=== PATIENT | female | born 1975 | race Caucasian/White ===

== ENCOUNTER 2020-06-18 14:43 | Emergency (ER) | payer SELFPAY ==
[~2020-06-18 14:43] MED LIST: MACROBID100 MG PO; METROCREAM45 GM VG
[2020-06-18 18:06] LABS: BILIRUBIN NEGATIVE (NEGATIVE); BLOOD NEGATIVE Ery/uL (NEGATIVE); CLARITY CLEAR (CLEAR); COLOR YELLOW (YELLOW); GLUCOSE (U) NORMAL (NORMAL); LEUKOCYTES NEGATIVE Leu/uL (NEGATIVE); NITRITE NEGATIVE (NEGATIVE); PROTEIN NEGATIVE (NEGATIVE); UROBILINOGEN 0.2 mg/dL (0.2-1.0)
[2020-06-18 18:19] LABS: BASOPHIL 0.5 % (0-2); EOSINOPHIL 1.6 % (0-5); HCT 40.9 % (37.0-47.0); HGB 13.5 g/dl (12.5-16.0); LYMPHOCYTE 33.6 % (15-48); MCH 29.2 pg (25.0-31.0); MCV 88.3 fL (78.0-100.0); MPV 9.7 fL (6.0-9.5); NRBC 0; PLT 342 K/uL (150-400); RBC 4.63 M/uL (4.20-5.40); WBC 7.4 K/uL (4.0-10.5)
[2020-06-18 18:41] LABS: ALBUMIN 3.9 g/dL (3.4-5.0); BILIRUBIN - TOTAL 0.4 mg/dL (0.2-1.0); BUN/CREAT RATIO (CALC) 16.4 RATIO; CREATININE 0.73 mg/dL (0.51-0.95); GLOBULIN (CALCULATION) 4.3 g/dL; POTASSIUM 3.9 mmol/L (3.5-5.1); TOTAL PROTEIN 8.2 g/dL (6.4-8.2)
== END 2020-06-18 19:03 | disposition home or self-care (01) ==
LOC: FER 14:43
PROVIDERS: Nurse Practitioner Family
DX: R51.9 Headache, unspecified (principal); R53.83 Other fatigue; Z88.2 Allergy status to sulfonamides
CPT/HCPCS: 36415; 80053; 81003; 85025; 99284